=== PATIENT | female | born 1970 | race Caucasian/White ===

== ENCOUNTER 2019-04-23 15:10 | Inpatient (IN) ==
[2019-04-23] MEDS ORDERED: SODIUM CHLORIDE 0.9% 1000ML 2,000 ML IV ONE (15:31)
[2019-04-23] MEDS ORDERED: ALBUT/IPRATROP 3MG/0.5MG NEB 3 ML VIAL NEB STA (15:35)
--- NOTE | 2019-04-23 16:09 | XRay Report ---
XR chest 1V portable CLINICAL HISTORY: 49 years-old Female presenting with Chest Pain. TECHNIQUE: Portable upright AP view of the chest was obtained. COMPARISON: None. FINDINGS: Cardiomediastinal silhouette normal. Bibasilar hazy opacity on a background of coarsened lung marking s and reticular opacities. Trace right pleural effusion suspected. No pneumothorax. Osseous structure s normal. Upper abdomen normal. IMPRESSION: 1. Hazy bibasilar opacities concerning for edema or pneumonitis. This may be on a background of leather toggler kumar lung disease. Consider PA and lateral views or chest CT for further assessment. ACT 112: Negative or not required by law. Electronically signed by: Matthew Dimas M.D. 04/23/2019 4:08 PM
[2019-04-23 16:17] LABS: Albumin Level 3.1 gm/dl (3.4-5.0); BUN Creatinine Ratio 12.5 (10-20); Calcium 8.6 mg/dl (8.5-10.1); Creatinine Clr Calc Pharmacy 129.2 ml/min; Est GFR (African American) 127.1; Est GFR (Non-African American) 109.6; Hematocrit (blood only) 44.6 % (37-47); Hemoglobin 15.5 g/dL (12.0-16.0); Magnesium 2.1 mg/dl (1.8-2.4); Mean Corpuscular Hemoglobin 30.6 pg (25-34); Mean Corpuscular Hgb Conc 34.8 g/dL (32-36); Mean Platelet Volume 12.3 fL (7.4-10.4); Platelet Count 318 K/uL (130-400); Potassium 3.4 mmol/L (3.5-5.1); RDW Coefficient of Variation 12.1 % (11.5-14.5); RDW Standard Deviation 38.8 fL (36.4-46.3); Red Blood Count 5.07 M/uL (4.2-5.4)
[2019-04-23 16:20] LABS: Albumin Globulin Ratio 0.8 (0.9-2); Bilirubin,Total 0.5 mg/dl (0.2-1); Globulin 3.8 gm/dl (2.5-4.0); Phosphorus 2.3 mg/dl (2.5-4.9); Total Protein 6.9 gm/dl (6.4-8.2)
[2019-04-23 16:23] LABS: Basophils # (auto) 0.01 K/uL (0-0.2); Eosinophils # (auto) 0.29 K/uL (0-0.5); Eosinophils % (auto) 0.9 %; Immature Granulocytes # (auto) 0.44 K/uL (0.00-0.02); Immature Granulocytes % (auto) 1.3 %; Lymphocytes # (auto) 0.39 K/uL (1.2-3.4); Lymphocytes % (auto) 1.2 %; Monocytes # (auto) 0.92 K/uL (0.11-0.59); Monocytes % (auto) 2.8 %; Neutrophils # (auto) 30.55 K/uL (1.4-6.5); Neutrophils % (auto) 93.8 %
[2019-04-23] MEDS ORDERED: AZITHROMYCIN 500 MG in DEXTROSE 5% 250 ML IV STA (16:25)
[2019-04-23] MEDS ORDERED: cefTRIAXone SODIUM 2,000 MG/70 ML BAG IV STA (16:25)
[2019-04-23] MEDS ORDERED: POT PHOSPHATE MONOBASIC W/ SOD TAB PO STA (16:27)
[2019-04-23] MEDS ORDERED: POTASSIUM CHLORIDE 20 MEQ TABCR PO STA (16:27)
[2019-04-23 16:29] LABS: Influenza A virus by PCR Neg for Influ A (Neg); Influenza B virus by PCR Neg for Influ B (Neg)
[2019-04-23] MEDS ORDERED: OPTIRAY 320 125ml IV PRN (16:48)
--- NOTE | 2019-04-23 17:06 | CT Scan Report ---
CT angio chest PE protocol CT DOSE: 288.83 mGy.cm HISTORY: 49 years-old Female with PE. Acute cough and congestion with shortness of breath TECHNIQUE: Multiple CTA images of the chest were obtained after the intravenous administration of 116 ml Optiray 320. Coronal and sagittal MIPS were obtained from the axial data set and were submitted for review. All measurements were obtained according to NASCET criteria. A dose lowering technique w as utilized adhering to the principles of ALARA. COMPARISON: Chest radiograph of same day FINDINGS: CTA: Heart is normal in size. Trace pericardial effusion. No thoracic aortic aneurysm or dissection. There is patency of the imaged great vessels. The left vertebral artery which dates from the aortic arch. The pulmonary artery is opacified to level of the subsegmental branches and demonstrates no filling d efects to suggest pulmonary thromboembolic disease. CT CHEST: Heterogeneous thyroid. Pathologically enlarged paratracheal, subcarinal and hilar lymph nodes measure up to 11 mm in short axis. Small layering bilateral pleural effusions. No pneumothorax. With lobular multilobar intralobular septal thickening suggests interstitial pulmonary edema. Thickening of the b ronchovascular bundles. Mild layering bibasilar atelectasis. Peripheral distribution of upper lung zo ne predominant multifocal groundglass opacities. Medial basal right lower lobe consolidation measures up to 4.5 cm on image 105 series 4. Central airways appear to be patent. Mild nonspecific wall thickening of the distal esophagus. Soft tissues and imaged breast parenchyma a ppear unremarkable. The bones appear intact. There are no suspicious osseous lesions identified. Mild degenerative changes of the spine and shoulders. IMPRESSION: 1. No evidence of pulmonary thromboembolic disease. 2. Pulmonary edema with small layering pleural effusions. 3. Peripheral upper lobe predominant groundglass and consolidative opacities with right lower lobe co nsolidation is suggestive of a multifocal infectious or inflammatory pneumonitis. 4. Mediastinal and hilar adenopathy, likely reactive. ACT 112: Negative or not required by law. The above report was generated using voice recognition software. It may contain grammatical, syntax o r spelling errors. Electronically signed by: Seferino Randolph M.D. 04/23/2019 5:04 PM
--- NOTE | 2019-04-23 17:50 | History & Physical Report ---
Date of Service April 23, 2019 Assessment & Plan (1) Hypoxia: PNA noted on CTA Requiring O2 to maintain sats Started on ceftriaxone, azithro in the ED, will continue WBC elevated, likely related to infectious process but also did receive steroids this AM Will not continue steroids due to no wheezing, no hx of COPD Flu neg Persistent tachy, monitor on tele overnight (2) Hypokalemia: Replaced in the ED, monitor (3) Anxiety: continue home meds (4) Depression: continue home meds (5) Alcohol abuse: Currently in rehab at [facility] Most of medications on this list are related to rehab Celexa was pt's only prior home med Last alcohol 04/01 (6) DVT prophylaxis: SCDs, ambulation History of Present Illness Primary Care Provider: YUVAL GRUBER 49 y/o F c/o fever and SOB. Pt states she woke in the middle of the night on morning with SOB. She later developed fevers. This has gotten worse into today. She is currently undergoing alcohol rehab at [facility] and was seen in their medical office yesterday. She was started on augmentin last night and had another dose this AM. She was also given a dose of steroids this AM. Despite this, pt has continued to feel worse. She was noted to have O2 sats in the mid-80s on RA. She does not use O2 at baseline. She has been nauseated without emesis. She has not had much PO due to no appetite. She has never been sick like this before. Pt states she was doing quite well with her rehab. Her last alcohol was 04/01. She entered rehab on 04/02. Her only medication upon admission to [facility] was celexa. The other medications are prescribed by [facility] as part of their program. She states she has not needed any PRNs for the last few days. Pt denies chest pain, abd pain, c/d, LE pain or swelling. Allergies Allergy/AdvReac Type Severity Reaction Status Date / Time Sulfa (Sulfonamide Allergy Intermediate Rash Verified 04/23/19 16:02 Antibiotics) Home Medications Home Medications Medication Instructions Recorded Confirmed Type Mucinex 400 Mg 400 mg PO Q6H PRN 04/23/19 04/23/19 History acetaminophen 650 mg PO QID PRN 04/23/19 04/23/19 History amoxicillin-pot clavulanate 1 tab PO BID 04/23/19 04/23/19 History [Augmentin] apple cider vinegar 0 mg PO QAM 04/23/19 04/23/19 History bisacodyl 15 mg PO DAILY PRN 04/23/19 04/23/19 History calcium carbonate [Tums] See Rx Instructions .ROUTE 04/23/19 04/23/19 History .COMPLEX PRN MDD 15 TABLETS/24 HOURS citalopram [Celexa] 20 mg PO QAM 04/23/19 04/23/19 History clonidine HCl 0.1 mg PO TID PRN 04/23/19 04/23/19 History cyanocobalamin (vitamin B-12) 1,000 mcg IM DIRECTED 04/23/19 04/23/19 History dicyclomine 20 mg PO TID PRN 04/23/19 04/23/19 History diphenhydramine HCl [Benadryl] 25 - 50 mg PO Q6H PRN 04/23/19 04/23/19 History docusate sodium [Colace] 100 mg PO DAILY PRN 04/23/19 04/23/19 History doxepin 50 mg PO HS 04/23/19 04/23/19 History hydroxyzine pamoate [Vistaril] 50 mg PO TID PRN 04/23/19 04/23/19 History ibuprofen 600 mg PO QID PRN 04/23/19 04/23/19 History loratadine [Claritin] 10 mg PO DAILY PRN 04/23/19 04/23/19 History melatonin 5 mg PO HS PRN 04/23/19 04/23/19 History menthol [Biofreeze (menthol)] 1 applic TOPICAL DIRECTED PRN 04/23/19 04/23/19 History multivitamin 1 tab PO QAM 04/23/19 04/23/19 History naloxone 0.4 mg IM DIRECTED PRN 04/23/19 04/23/19 History naltrexone 50 mg PO DAILY 04/23/19 04/23/19 History naltrexone microspheres [Vivitrol] 380 mg IM DIRECTED 04/23/19 04/23/19 History ondansetron HCl [Zofran] 8 mg PO TID PRN 04/23/19 04/23/19 History polyethylene glycol 3350 [Miralax] 17 g PO Q4H PRN 04/23/19 04/23/19 History prednisone See Rx Instructions .ROUTE .COMPLEX 04/23/19 04/23/19 History promethazine 25 mg PO QID PRN 04/23/19 04/23/19 History ranitidine HCl [Zantac] 150 mg PO BID PRN 04/23/19 04/23/19 History Past Med/Surg History Medical History Encounter for alcohol rehabilitation Family History (Updated 04/23/19 @ 17:47 by Helen Baugh DO) Other Myocardial infarction No significant family history Stroke Social History (Updated 04/23/19 @ 17:48 by Helen Baugh DO) Feels Safe at Home: Yes Smoking Status: Former smoker Number of Years Since Quit: 19 ; Hx Alcohol Use: Yes Hx Substance Use: No Review of Systems Review of Systems: Pertinent positives and negatives reviewed in HPI--all others negative Physical Exam Constitutional: WD/WN, vitals as above Eyes: normal visual shelby by confrontation and + anicteric sclerae Neck: normal visual inspection and trachea midline Respiratory: normal respiratory effort; no respiratory distress Auscultation: + crackles; no wheezes Cardiovascular: Rate/Rhythm: regular rhythm and + tachycardic Gastrointestinal (Abdomen): Inspection/Auscultation: abdomen not distended Percussion/Palpation: abdomen soft; abdomen nontender Musculoskeletal: Head/Neck/Chest: normocephalic and head atraumatic negative for edema, peripheral pulses intact Skin: no rashes, warm and dry Neurologic: awake; not confused Speech / Cognition: normal speech Psychiatric: A+Ox3, euthymic affect Results & Data Vital Signs (Past 12 Hours) Vital Signs Temp Pulse Pulse Resp BP Pulse Ox 04/23/19 16:40 105 H 15 96 04/23/19 16:33 105 H 19 97/69 L 94 04/23/19 16:30 110 H 15 96 04/23/19 16:24 104 H 22 85 L 04/23/19 16:20 105 H 23 94 04/23/19 16:10 106 H 20 93 04/23/19 16:00 97 H 21 94 01/17/20 15:50 102 H 20 94 04/23/19 15:13 37.4 C 125 H 18 108/71 85 L Diagnostic Findings CXR: ?? bibasilar infiltrate CTA: PNA, neg for PE ECG Rhythm: sinus tachycardia Code Status & VTE Plan Code Status Full code VTE Prophylaxis Plan VTE Prophylaxis will be ordered: Yes PG Care Time/CCT Total # of Minutes Spent Total Time Spent with Patient: Total time spent is greater than 50% in coordination of care (as documented) at patient's floor/unit and/or counseling patient:
[2019-04-23] MEDS ORDERED: NON-FORMULARY MEDICATION (Menthol [Biofreeze (Menthol)] 1 APPLN) TOP PRN (18:50)
[2019-04-23] MEDS ORDERED: PROMETHAZINE HCL 25 MG TAB PO PRN (18:50)
[2019-04-23] MEDS ORDERED: DICYCLOMINE HCL 20 MG TAB PO PRN (18:50)
[2019-04-23] MEDS ORDERED: DOCUSATE SODIUM 100 MG CAP PO PRN (18:50)
[2019-04-23] MEDS ORDERED: ONDANSETRON 8 MG TABLET PO PRN (18:50)
[2019-04-23] MEDS ORDERED: ONDANSETRON INJ 2 MG/ML 2 ML VIAL IV PRN (18:50)
[2019-04-23] MEDS ORDERED: MAGNESIUM HYDROXIDE SUSP 30 ML UDC PO PRN (18:50)
[2019-04-23] MEDS ORDERED: POLYETHYLENE (MIRALAX) 17 GM PACK PO PRN (18:50)
[2019-04-23] MEDS ORDERED: CALCIUM CARBONATE 500 MG CHEWABLE TAB PO PRN (18:50)
[2019-04-23] MEDS ORDERED: cloNIDine HCL 0.1 MG TAB PO PRN (18:50)
[2019-04-23] MEDS ORDERED: LORATADINE 10 MG TAB PO PRN (18:50)
[2019-04-23] MEDS ORDERED: NON-FORMULARY MEDICATION (Melatonin 5 MG) PO PRN (18:50)
[2019-04-23] MEDS ORDERED: DOXEPIN HCL 50 MG CAPSULE PO PRN (18:50)
[2019-04-23] MEDS ORDERED: NALOXONE HCL 0.4 MG/1 ML VIAL/CARP IM PRN (18:50)
[2019-04-23] MEDS ORDERED: bisacodyL 5 MG TABEC PO PRN (19:06)
[2019-04-23] MEDS ORDERED: IBUPROFEN 600 MG TAB PO PRN (19:11)
[2019-04-23] MEDS: LACTOBACILLUS ACIDOPHILUS (FLORANEX) TAB PO SCH (20:45)
[2019-04-23] MEDS: FAMOTIDINE 20 MG TAB PO SCH (20:46)
[2019-04-23] MEDS: guaiFENesin 200 MG TAB PO PRN (22:29)
--- NOTE | 2019-04-23 23:19 | Emergency Department Note ---
Entered by Nara Parker acting as a scribe for History of Present Illness General Chief complaint: Fever Stated complaint: FEVER, CHEST CONGESTION Time Seen by Provider: 04/23/19 15:19 Source: patient History of Present Illness Onset (ago): day(s) 1 Location: head (fever ) Pain Consistency: + other (worsening) Maximum Pain Intensity: 8 Associated symptoms: + denies other symptoms (diarrhea and burning urination), + cough, + shortness of breath and + other (achy muscles, congestion); no chest pain and no nausea/vomiting Treatments prior to arrival: other (Tylenol and Ibuprofen) The patient is a 49 year old F who presents to the Emergency Room with com plaints of a worsening fever that started 1 day ago. The patient notes that her fever started yesterday, morning. The patient states that her fever has been around 101. She notes that she has also been experiencing coughing, congestion, shortness of breath and achy muscles around her chest and back. She states that she took Tylenol and Ibuprofen today. She denies experiencing chest pain, nausea, diarrhea, and burning urination. She also denies that she is normally on oxygen. She states that she is currently at [facility] for alcohol abuse. She adds that she has been receiving fluids there. She notes that she will get to go home next Friday. She denies being around anybody sick. She states that she currently takes Celexa, 20 mg. She adds that she is a current smoker. Home Medications Home Medications Medication Instructions Recorded Confirmed Type Mucinex 400 Mg 400 mg PO Q6H PRN 04/23/19 04/23/19 History acetaminophen 650 mg PO QID PRN 04/23/19 04/23/19 History amoxicillin-pot clavulanate 1 tab PO BID 04/23/19 04/23/19 History [Augmentin] apple cider vinegar 0 mg PO QAM 04/23/19 04/23/19 History bisacodyl 15 mg PO DAILY PRN 04/23/19 04/23/19 History calcium carbonate [Tums] See Rx Instructions .ROUTE 04/23/19 04/23/19 History .COMPLEX PRN MDD 15 TABLETS/24 HOURS citalopram [Celexa] 20 mg PO QAM 04/23/19 04/23/19 History clonidine HCl 0.1 mg PO TID PRN 04/23/19 04/23/19 History cyanocobalamin (vitamin B-12) 1,000 mcg IM DIRECTED 04/23/19 04/23/19 History dicyclomine 20 mg PO TID PRN 04/23/19 04/23/19 History diphenhydramine HCl [Benadryl] 25 - 50 mg PO Q6H PRN 04/23/19 04/23/19 History docusate sodium [Colace] 100 mg PO DAILY PRN 04/23/19 04/23/19 History doxepin 50 mg PO HS 04/23/19 04/23/19 History hydroxyzine pamoate [Vistaril] 50 mg PO TID PRN 04/23/19 04/23/19 History ibuprofen 600 mg PO QID PRN 04/23/19 04/23/19 History loratadine [Claritin] 10 mg PO DAILY PRN 04/23/19 04/23/19 History melatonin 5 mg PO HS PRN 04/23/19 04/23/19 History menthol [Biofreeze (menthol)] 1 applic TOPICAL DIRECTED PRN 04/23/19 04/23/19 History multivitamin 1 tab PO QAM 04/23/19 04/23/19 History naloxone 0.4 mg IM DIRECTED PRN 04/23/19 04/23/19 History naltrexone 50 mg PO DAILY 04/23/19 04/23/19 History naltrexone microspheres [Vivitrol] 380 mg IM DIRECTED 04/23/19 04/23/19 History ondansetron HCl [Zofran] 8 mg PO TID PRN 04/23/19 04/23/19 History polyethylene glycol 3350 [Miralax] 17 g PO Q4H PRN 04/23/19 04/23/19 History prednisone See Rx Instructions .ROUTE .COMPLEX 04/23/19 04/23/19 History promethazine 25 mg PO QID PRN 04/23/19 04/23/19 History ranitidine HCl [Zantac] 150 mg PO BID PRN 04/23/19 04/23/19 History Allergies Allergy/AdvReac Type Severity Reaction Status Date / Time Sulfa (Sulfonamide Allergy Intermediate Rash Verified 04/23/19 16:02 Antibiotics) Past Med/Surg History Medical History Encounter for alcohol rehabilitation Family History Other Myocardial infarction No significant family history Stroke Social History Preferred Language: Cuban Communication Ability: Effective Clothing Designer Required: No Beliefs That Will Affect Care: None Current Living Situation: Other Current Living Situation Comment: at [facility] rehab Other Information That Helps Us Care for You: No Feels Safe at Home: Yes Safety Concerns: Feels Safe At This Time Smoking Status: Current every day smoker Tobacco Type: cigarettes ; Cigarettes Per Day: 1-2, restarted, quit 19 years prior ; Do You Dip or Chew Tobacco: No ; Number of Years Since Quit: 19 ; Second Hand Exposure: No ; Tobacco Cessation Education Requested by Patient: No Hx Alcohol Use: No Hx Substance Use: No Review of Systems See HPI for pertinent positives & negatives. and A total of 10 systems reviewed and were otherwise negative Physical Exam Vital Signs Vital Signs - 24 hr 04/23/19 15:13 04/23/19 15:50 04/23/19 16:00 Temperature 37.4 C Temperature Source Oral Pulse Rate 125 H 102 H 97 H Pulse Rate [Apical] Pulse Rate from SpO2 Sensor 102 H 98 H Respiratory Rate 18 20 21 Respiratory Effort / Characteristics Blood Pressure 108/71 Blood Pressure Mean 83 Pulse Oximetry 85 L 94 94 Oxygen Delivery Method Room Air Room Air Oxygen Flow Rate Sepsis Recent Fever Within 48 Hours Yes Sepsis New/Unexplained Change in Mental Status No Sepsis Action Taken by Nursing No Action Required Oxygen Flow Rate - Titration Pulse Oximetry Post Tiitration 04/23/19 16:10 04/23/19 16:20 04/23/19 16:24 Temperature Temperature Source Pulse Rate 106 H 105 H Pulse Rate [Apical] 104 H Pulse Rate from SpO2 Sensor 106 H 105 H Respiratory Rate 20 23 22 Respiratory Effort / Characteristics Non-Labored Spontaneous Blood Pressure Blood Pressure Mean Pulse Oximetry 93 94 85 L Oxygen Delivery Method Nasal Cannula Oxygen Flow Rate 0 Sepsis Recent Fever Within 48 Hours Sepsis New/Unexplained Change in Mental Status Sepsis Action Taken by Nursing Oxygen Flow Rate - Titration 2 Pulse Oximetry Post Tiitration 93 04/23/19 16:30 04/23/19 16:33 04/23/19 16:40 Temperature Temperature Source Pulse Rate 110 H 105 H 105 H Pulse Rate [Apical] Pulse Rate from SpO2 Sensor 113 H 105 H 107 H Respiratory Rate 15 19 15 Respiratory Effort / Characteristics Blood Pressure 97/69 L Blood Pressure Mean 73 Pulse Oximetry 96 94 96 Oxygen Delivery Method Oxygen Flow Rate Sepsis Recent Fever Within 48 Hours Sepsis New/Unexplained Change in Mental Status Sepsis Action Taken by Nursing Oxygen Flow Rate - Titration Pulse Oximetry Post Tiitration GENERAL: Awake, alert, fatigued-appearing HENT: Normocephalic, atraumatic. Oropharynx with dry mucous membranes and otherwise unremarkable. EYES: Normal conjunctiva. Sclera non-icteric. NECK: Supple. No nuchal rigidity. FROM. No JVD. RESPIRATORY: Scant intermittent wheezes otherwise clear. CARDIAC: Tachycardic rate, normal rhythm. Extremities warm and well perfused. Pulses equal. ABDOMEN: Soft, non-distended. No tenderness to palpation. No rebound or guarding. No masses. RECTAL: Deferred. MUSCULOSKELETAL: Chest examination reveals no tenderness. The back is symmetrical on inspection without obvious abnormality. There is no CVA tenderness to palpation. No joint edema. LOWER EXTREMITIES: Calves are equal size bilaterally and non-tender. No edema. No discoloration. NEURO: Normal sensorium. No sensory or motor deficits noted. SKIN: No rash or jaundice noted. Course Course 1529: The patient was evaluated in room C8. A complete history and physical exam was performed. 1713: I reviewed the patient's case with Dr. Helen Baugh, [facility] Hospitalist. She will evaluate the patient for further management. Administered Medications Famotidine (Pepcid) 20 mg PO BID [facility] Stop: 05/23/19 20:59 Last Admin: 04/23/19 20:46 Dose: 20 mg Documented by: [id number] Guaifenesin (Organidin Nr) 400 mg PO Q6H PRN PRN Reason: CONGESTION Stop: 05/23/19 19:08 Last Admin: 04/23/19 22:29 Dose: 400 mg Documented by: [id number] Ibuprofen (Motrin) 600 mg PO QID PRN PRN Reason: PAIN OR FEVER Stop: 05/23/19 19:10 Last Admin: 04/23/19 22:31 Dose: 600 mg Documented by: [id number] Ioversol (Optiray 320 125ml) 116 ml IV ONCE PRN PRN Reason: Interaction Checking Stop: 04/27/19 16:47 Last Admin: 04/23/19 16:48 Dose: 116 ml Documented by: [id number] Lactobacillus Acidophilus (Floranex) 4 tab PO QIDM OZZY Stop: 05/23/19 20:59 Last Admin: 04/23/19 20:45 Dose: 4 tab Documented by: [id number] Discontinued Medications Albuterol (Duoneb) 3 ml NEB NOW STA Stop: 04/23/19 15:36 Last Admin: 04/23/19 16:21 Dose: 3 ml Documented by: [id number] Sodium Chloride (Nss 1000ml) 2,000 mls @ 999 mls/hr IV .Q2H1M ONE Stop: 04/23/19 17:31 Last Infusion: 04/23/19 18:27 Dose: 0 mls/hr Documented by: [id number] Admin: 04/23/19 16:25 Dose: 999 mls/hr Documented by: [id number] Ceftriaxone Sodium (Rocephin) 2,000 mg in 70 mls @ 140 mls/hr IV NOW STA Stop: 04/23/19 16:54 Last Infusion: 04/23/19 17:13 Dose: 0 mls/hr Documented by: [id number] Admin: 04/23/19 16:42 Dose: 140 mls/hr Documented by: [id number] Azithromycin 500 mg/ Dextrose 255 mls @ 127.5 mls/hr IV NOW STA Stop: 04/23/19 18:24 Last Infusion: 04/23/19 19:55 Dose: 0 mls/hr Documented by: [id number] Admin: 04/23/19 17:03 Dose: 127.5 mls/hr Documented by: [id number] Potassium Chloride (Klor-Con M20) 40 meq PO NOW STA Stop: 04/23/19 16:28 Last Admin: 04/23/19 16:42 Dose: 40 meq Documented by: [id number] Potassium Phosphate (Phospha 250 Neutral 155-852-130 Mg) 2 tab PO NOW STA Stop: 04/23/19 16:28 Last Admin: 04/23/19 17:02 Dose: 2 tab Documented by: [id number] Medical Decision Making Differential Diagnosis Differential diagnoses includes but is not limited to pneumonia, bronchitis, COPD/Asthma exacerbation, pneumothorax, pulmonary embolism, congestive heart failure, acute coronary syndrome Medical Records Attestation: I reviewed the patient's medical records. Home Medications Current Medication List: was personally reviewed by me Laboratory Data Attestation: I reviewed the patient's lab results. Result diagrams: 04/23/19 15:48 04/23/19 15:48 Lab Results 04/23/19 04/23/19 04/23/19 Range/Units 15:45 15:48 15:48 WBC 32.60 H* (4.8-10.8) K/uL RBC 5.07 (4.2-5.4) M/uL Hgb 15.5 (12.0-16.0) g/dL Hct 44.6 (37-47) % MCV 88.0 (80-100) fL MCH 30.6 (25-34) pg MCHC 34.8 (32-36) g/dL RDW Std Deviation 38.8 (36.4-46.3) fL RDW Coeff of Krys 12.1 (11.5-14.5) % Plt Count 318 (130-400) K/uL MPV 12.3 H (7.4-10.4) fL Immature Gran % (Auto) 1.3 % Neut % (Auto) 93.8 % Lymph % (Auto) 1.2 % [place] % (Auto) 2.8 % Eos % (Auto) 0.9 % Baso % (Auto) 0.0 % Immature Gran # (Auto) 0.44 H (0.00-0.02) K/uL Neut # (Auto) 30.55 H (1.4-6.5) K/uL Lymph # (Auto) 0.39 L (1.2-3.4) K/uL [place] # (Auto) 0.92 H (0.11-0.59) K/uL Eos # (Auto) 0.29 (0-0.5) K/uL Baso # (Auto) 0.01 (0-0.2) K/uL Sodium 136 (136-145) mmol/L Potassium 3.4 L (3.5-5.1) mmol/L Chloride 105 (98-107) mmol/L Carbon Dioxide 22 (21-32) mmol/L Anion Gap 9.0 (3-11) BUN 7 (7-18) mg/dl Creatinine 0.57 L (0.6-1.2) mg/dl Est Cr Clr Drug Dosing 129.2 ml/min Est GFR ( Amer) 127.1 Est GFR (Non-Af Amer) 109.6 BUN/Creatinine Ratio 12.5 (10-20) Glucose 136 H (70-99) mg/dl Lactate (0.4-2.0) mmol/L Calcium 8.6 (8.5-10.1) mg/dl Phosphorus 2.3 L (2.5-4.9) mg/dl Magnesium 2.1 (1.8-2.4) mg/dl Total Bilirubin 0.5 (0.2-1) mg/dl AST 9 L (15-37) U/L ALT 15 (12-78) U/L Alkaline Phosphatase 51 (45-117) U/L NT-Pro-B Natriuret Pep 322 (0-450) pg/ml Total Protein 6.9 (6.4-8.2) gm/dl Albumin 3.1 L (3.4-5.0) gm/dl Globulin 3.8 (2.5-4.0) gm/dl Albumin/Globulin Ratio 0.8 L (0.9-2) Lipase 24 L (73-393) U/L Influenza Type A (PCR) Neg for Influ A (Neg) Influenza Type B (PCR) Neg for Influ B (Neg) 04/23/19 Range/Units 16:31 WBC (4.8-10.8) K/uL RBC (4.2-5.4) M/uL Hgb (12.0-16.0) g/dL Hct (37-47) % MCV (80-100) fL MCH (25-34) pg MCHC (32-36) g/dL RDW Std Deviation (36.4-46.3) fL RDW Coeff of Krys (11.5-14.5) % Plt Count (130-400) K/uL MPV (7.4-10.4) fL Immature Gran % (Auto) % Neut % (Auto) % Lymph % (Auto) % [place] % (Auto) % Eos % (Auto) % Baso % (Auto) % Immature Gran # (Auto) (0.00-0.02) K/uL Neut # (Auto) (1.4-6.5) K/uL Lymph # (Auto) (1.2-3.4) K/uL [place] # (Auto) (0.11-0.59) K/uL Eos # (Auto) (0-0.5) K/uL Baso # (Auto) (0-0.2) K/uL Sodium (136-145) mmol/L Potassium (3.5-5.1) mmol/L Chloride (98-107) mmol/L Carbon Dioxide (21-32) mmol/L Anion Gap (3-11) BUN (7-18) mg/dl Creatinine (0.6-1.2) mg/dl Est Cr Clr Drug Dosing ml/min Est GFR ( Amer) Est GFR (Non-Af Amer) BUN/Creatinine Ratio (10-20) Glucose (70-99) mg/dl Lactate 0.8 (0.4-2.0) mmol/L Calcium (8.5-10.1) mg/dl Phosphorus (2.5-4.9) mg/dl Magnesium (1.8-2.4) mg/dl Total Bilirubin (0.2-1) mg/dl AST (15-37) U/L ALT (12-78) U/L Alkaline Phosphatase (45-117) U/L NT-Pro-B Natriuret Pep (0-450) pg/ml Total Protein (6.4-8.2) gm/dl Albumin (3.4-5.0) gm/dl Globulin (2.5-4.0) gm/dl Albumin/Globulin Ratio (0.9-2) Lipase (73-393) U/L Influenza Type A (PCR) (Neg) Influenza Type B (PCR) (Neg) Imaging Data Radiologist's Impression: Radiology results as stated below per my review and t he radiologist's interpretation: XR chest 1V portable CLINICAL HISTORY: 49 years-old Female presenting with Chest Pain. TECHNIQUE: Portable upright AP view of the chest was obtained. COMPARISON: None. FINDINGS: Cardiomediastinal silhouette normal. Bibasilar hazy opacity on a background of coarsened lung markings and reticular opacities. Trace right pleural effusion suspected. No pneumothorax. Osseous structures normal. Upper abdomen normal. IMPRESSION: 1. Hazy bibasilar opacities concerning for edema or pneumonitis. This may be on a background of chronic lung disease. Consider PA and lateral views or chest CT for further assessment. ACT 112: Negative or not required by law. Electronically signed by: Matthew Dimas M.D. 04/23/2019 4:[address] angio chest PE protocol CT DOSE: 288.83 mGy.cm HISTORY: 49 years-old Female with PE. Acute cough and congestion with shortness of breath TECHNIQUE: Multiple CTA images of the chest were obtained after the intravenous administration of 116 ml Optiray 320. Coronal and sagittal MIPS were obtained from the axial data set and were submitted for review. All measurements were obtained according to NASCET criteria. A dose lowering technique was utilized adhering to the principles of ALARA. COMPARISON: Chest radiograph of same day FINDINGS: CTA: Heart is normal in size. Trace pericardial effusion. No thoracic aortic aneurysm or dissection. There is patency of the imaged great vessels. The left vertebral artery which dates from the aortic arch. The pulmonary artery is opacified to level of the subsegmental branches and demonstrates no filling defects to suggest pulmonary thromboembolic disease. CT CHEST: Heterogeneous thyroid. Pathologically enlarged paratracheal, subcarinal and hilar lymph nodes measure up to 11 mm in short axis. Small layering bilateral pleural effusions. No pneumothorax. With lobular multilobar intralobular septal thickening suggests interstitial pulmonary edema. Thickening of the bronchovascular bundles. Mild layering bibasilar atelectasis. Peripheral distribution of upper lung zone predominant multifocal groundglass opacities. Medial basal right lower lobe consolidation measures up to 4.5 cm on image 105 s eries 4. Central airways appear to be patent. Mild nonspecific wall thickening of the distal esophagus. Soft tissues and imaged breast parenchyma appear unremarkable. The bones appear intact. There are no suspicious osseous lesions identified. Mild degenerative changes of the spine and shoulders. IMPRESSION: 1. No evidence of pulmonary thromboembolic disease. 2. Pulmonary edema with small layering pleural effusions. 3. Peripheral upper lobe predominant groundglass and consolidative opacities with right lower lobe consolidation is suggestive of a multifocal infectious or inflammatory pneumonitis. 4. Mediastinal and hilar adenopathy, likely reactive. ACT 112: Negative or not required by law. The above report was generated using voice recognition software. It may contain grammatical, syntax or spelling errors. Electronically signed by: Seferino Randolph M.D. 04/23/2019 5:04 PM ECG Data Attestation: I personally reviewed and interpreted this ECG as follows: Indication: + SOB/dyspnea Rate (beats per minute): 102 Rhythm: + sinus tachycardia ECG [place]: + Normal ECG ST segments: no ST depression and no ST elevation ECG Findings: + PACs and + Other (aberrant conduction, QTc 443) Blood Pressure Blood Pressure Findings: Low blood pressure Blood Pressure Disposition: further management by hospitalist MDM Narrative The patient is a pleasant 49-year-old woman who presents emergency department from [facility] alcohol rehab with fevers, chills with cough and congestion and hypoxia per HPI. Patient reports she has been in [facility] for several weeks but only began to feel symptoms over the past 24-48 hours. She reports there was another participant at [facility] says that she was aware of having an illness but she did not feel like she was ever exposed to this person. She denies any history of smoking but reports recently started smoking while undergoing her alcohol rehab. On arrival the patient is fatigued and uncomfortable no acute distress, afebrile with heart rate in the 120s and hypoxia to 85% on room air. EKG without overt acute ischemia. Chest x-ray with evidence of pneumonia. WBC elevated at 30 2.6K, H/H and platelets within normal limits. Chemistry without acidosis. Potassium 3.4 and phosphorus 2.3 with repletion provided. Otherwise electrolytes and LFTs unremarkable. Lactate within normal limits. BNP within normal limits. Flu negative. CTA negative for PE and further characterizes the patient's pneumonia with right upper lobe consolidation. Comment of mild pulmonary edema likely related to infectious inflammatory process. As BNP is within normal limits. Antibiotic therapy initiated with ceftriaxone and azithromycin. Given the patient's hypoxia and leukocytosis reasonable to admit the patient for further management. Patient was agreeable with this. Case was discussed with Dr. Helen Baugh, [facility] hospitalist, who evaluate the patient for admission. Impression & Plan PNA (pneumonia), Hypoxia, Pleural effusion, Leukocytosis, Hypokalemia, Hypophosphatemia Discharge Plan Visit Data *Final* Discharge Date/Time: 04/23/19 18:27 Chief Complaint: Fever Stated Complaint: FEVER, CHEST CONGESTION ED Provider: Martínez Churchill Discharge Problem: PNA (pneumonia), Hypoxia, Pleural effusion, Leukocytosis, Hypokalemia, Hypophosphatemia Patient Disposition: Admitted As Inpatient Discharge Instructions Interventions: ED Discharge Assessment Last Done: 04/23/19 18:27 Discharge Problem: PNA (pneumonia) Qualifiers: Pneumonia type: due to unspecified organism Laterality: bilateral Lung location: lower lobe of lung Qualified Code(s): J18.9 - Pneumonia, unspecified organism Leukocytosis Qualifiers: Leukocytosis type: unspecified Qualified Code(s): D72.829 - Elevated white blood cell count, unspecified The scribe's documentation has been prepared under my direction and personally reviewed by me in its entirety. I confirm that the note above accurately reflects all work, treatment, procedures, and medical decision making performed by me.
[2019-04-24] MEDS: ACETAMINOPHEN 325 MG TAB PO PRN ×3 (04:09→23:07)
[2019-04-24 07:23] LABS: Hematocrit (blood only) 40.1 % (37-47); Hemoglobin 13.7 g/dL (12.0-16.0); Mean Corpuscular Hemoglobin 30.2 pg (25-34); Mean Corpuscular Hgb Conc 34.2 g/dL (32-36); Mean Corpuscular Volume 88.3 fL (80-100); Mean Platelet Volume 12.1 fL (7.4-10.4); Platelet Count 294 K/uL (130-400); RDW Coefficient of Variation 12.2 % (11.5-14.5); RDW Standard Deviation 39.3 fL (36.4-46.3); Red Blood Count 4.54 M/uL (4.2-5.4); White Blood Count 24.86 K/uL (4.8-10.8)
[2019-04-24] MEDS: MULTIVITAMIN TAB PO SCH (07:50)
[2019-04-24 07:51] LABS: Basophils # (auto) 0.01 K/uL (0-0.2); Immature Granulocytes # (auto) 0.24 K/uL (0.00-0.02); Lymphocytes # (auto) 0.59 K/uL (1.2-3.4); Lymphocytes % (auto) 2.4 %; Monocytes # (auto) 0.93 K/uL (0.11-0.59); Monocytes % (auto) 3.7 %; Neutrophils # (auto) 22.59 K/uL (1.4-6.5); Neutrophils % (auto) 90.9 %; Toxic Vacuolation 1+
[2019-04-24] MEDS: NALTREXONE HCL 50 MG TAB PO SCH (07:51)
[2019-04-24] MEDS: LACTOBACILLUS ACIDOPHILUS (FLORANEX) TAB PO SCH ×4 (07:51→21:28)
[2019-04-24] MEDS: FAMOTIDINE 20 MG TAB PO SCH ×2 (07:51→21:30)
[2019-04-24] MEDS: CITALOPRAM 20 MG TAB PO SCH (07:51)
[2019-04-24 07:52] LABS: Creatinine Clr Calc Pharmacy 157.5 ml/min; Est GFR (African American) 135.4; Est GFR (Non-African American) 116.8; Potassium 3.2 mmol/L (3.5-5.1)
[2019-04-24] MEDS: guaiFENesin 200 MG TAB PO PRN ×2 (07:52→21:28)
[2019-04-24 07:53] LABS: Phosphorus 2.2 mg/dl (2.5-4.9)
[2019-04-24] MEDS: cefTRIAXone SODIUM 1,000 MG/50 ML BAG IV SCH (08:25)
[2019-04-24] MEDS: AZITHROMYCIN 250 MG in DEXTROSE 5% 250 ML IV SCH (08:33)
[2019-04-24] MEDS: POTASSIUM CHLORIDE 20 MEQ TABCR PO SCH ×3 (09:44→21:27)
[2019-04-24] MEDS: POT PHOSPHATE MONOBASIC W/ SOD TAB PO SCH ×4 (09:44→21:31)
--- NOTE | 2019-04-24 10:59 | Electrocardiogram Report ---
Test Reason : Blood Pressure : / mmHG Vent. Rate : 102 BPM Atrial Rate : 102 BPM P-R Int : 156 ms QRS Dur : 072 ms QT Int : 340 ms P-R-T Axes : 071 017 050 degrees QTc Int : 443 ms Poor data quality, interpretation may be adversely affected Sinus tachycardia with Premature ventricular complexes Left atrial enlargement Possible Anteroseptal infarct , age undetermined vs lead placement Abnormal ECG No previous ECGs available Confirmed by Negrito Ford ([id number]) on 04/24/2019 10:58:55 AM Referred By: REFERRED SELF Confirmed By:Negrito Ford
[2019-04-24] MEDS ORDERED: BENZONATATE 100 MG CAPSULE PO PRN (12:03)
--- NOTE | 2019-04-24 12:04 | Hospitalist Progress Note ---
Date of Service April 24, 2019 Assessment & Plan (1) Acute respiratory failure with hypoxia: CT chest with b/l pneumonia. This could be viral vs bacterial. Technically she was in a health-care type of setting but it was not a hospital per se. None the less if she fails to improve would need to consider adding gram negative coverage. Flu PCR was neg. Blood cx's thus far neg. Remains on rocephin/zithromax - day #2 of each. WBC count did improve overnight. Other possibility would be that of a smoking-related bronchiolitis given that she just started smoking again over the last 2 weeks but this is less likely. (2) PNA (pneumonia): Cont current IV abx. Add solumedrol 30mg IV q12h due to bronchitic component. Add combivent QID. Add tessalon prn. Add incentive sheila. Add flutter valve. Consider repeat cxr in am. Follow cultures. Could consider mycoplasma/legionella testing. (3) Hypokalemia: replace PO repeat BMP am (4) Hypophosphatemia: replace PO repeat level 2-3 days (5) Anxiety: cont outpatient meds (6) Depression: cont outpatient meds (7) Alcohol abuse: just finished a 2-3 week stay at [facility] drug/alcohol rehab does not need to return there post-d/c from [facility] add thiamine once daily no evidence of any etoh withdrawal (last drink was ) (8) Tobacco use: declines nicoderm patch (9) DVT prophylaxis: add lovenox once daily updated at bedside Subjective patient reports ongoing dry cough. mild WALLS but none at rest. no orthopnea. had been at [facility] alcohol/drug rehab since just after . she states that she has been discharged from the program and does not need to return there. previously she smoked; quit 19 years ago; then restarted smoking while at [facility] in the last 2 weeks. had fever at [facility] a few days ago. has poor appetite, nausea - but no abdominal pain. Review of Systems Constitutional: + fever, + fatigue and + anorexia; no chills Respiratory: + cough; no hemoptysis, no sputum production and no wheezing Cardiovascular: no chest pain Gastrointestinal: no abdominal pain Physical Exam Constitutional: + ill appearing; no acute distress and no altered mental status ENMT: external ear and nose normal, oropharynx normal Respiratory: Auscultation: + crackles (extensive - right base, right anterior chest, and left base.) and + wheezes (focal - right lung mainly.) Cardiovascular: Rate/Rhythm: regular rate and regular rhythm Heart Sounds: normal S1 and normal S2; no murmur Vessels: posterior tibial pulses present and dorsalis pedis pulses present; no JVD Extremities: no edema Gastrointestinal (Abdomen): normal bowel sounds, soft, nontender, no hepatosplenomegaly Skin: no rashes, warm and dry tattoo on back Neurologic: Motor/Sensory: no tremor Psychiatric: A+Ox3, euthymic affect Results & Data Vital Signs (Past 12 Hours) Vital Signs Temp Pulse Pulse Resp BP BP Pulse Ox 04/24/19 11:00 37.0 C 106 H 18 107/68 91 04/24/19 08:00 109 H 04/24/19 07:00 37.0 C 100 H 18 108/70 91 04/24/19 04:50 36.9 C 108 H 19 121/66 90 04/24/19 00:07 37.2 C 98 H 18 106/62 90 Laboratory Results Laboratory Results - last 24 hr 04/23/19 04/23/19 04/23/19 15:45 15:48 15:48 WBC 32.60 H* RBC 5.07 Hgb 15.5 Hct 44.6 MCV 88.0 MCH 30.6 MCHC 34.8 RDW Std Deviation 38.8 RDW Coeff of Krys 12.1 Plt Count 318 MPV 12.3 H Immature Gran % (Auto) 1.3 Neut % (Auto) 93.8 Lymph % (Auto) 1.2 Moody % (Auto) 2.8 Eos % (Auto) 0.9 Baso % (Auto) 0.0 Immature Gran # (Auto) 0.44 H Neut # (Auto) 30.55 H Lymph # (Auto) 0.39 L Moody # (Auto) 0.92 H Eos # (Auto) 0.29 Baso # (Auto) 0.01 Toxic Vacuolation Sodium 136 Potassium 3.4 L Chloride 105 Carbon Dioxide 22 Anion Gap 9.0 BUN 7 Creatinine 0.57 L Est Cr Clr Drug Dosing 129.2 Est GFR ( Amer) 127.1 Est GFR (Non-Af Amer) 109.6 BUN/Creatinine Ratio 12.5 Glucose 136 H Lactate Calcium 8.6 Phosphorus 2.3 L Magnesium 2.1 Total Bilirubin 0.5 AST 9 L ALT 15 Alkaline Phosphatase 51 NT-Pro-B Natriuret Pep 322 Total Protein 6.9 Albumin 3.1 L Globulin 3.8 Albumin/Globulin Ratio 0.8 L Lipase 24 L Influenza Type A (PCR) Neg for Influ A Influenza Type B (PCR) Neg for Influ B 04/23/19 04/24/19 04/24/19 16:31 07:05 07:05 WBC 24.86 H RBC 4.54 Hgb 13.7 Hct 40.1 MCV 88.3 MCH 30.2 MCHC 34.2 RDW Std Deviation 39.3 RDW Coeff of Krys 12.2 Plt Count 294 MPV 12.1 H Immature Gran % (Auto) 1.0 Neut % (Auto) 90.9 Lymph % (Auto) 2.4 Moody % (Auto) 3.7 Eos % (Auto) 2.0 Baso % (Auto) 0.0 Immature Gran # (Auto) 0.24 H Neut # (Auto) 22.59 H Lymph # (Auto) 0.59 L Moody # (Auto) 0.93 H Eos # (Auto) 0.50 Baso # (Auto) 0.01 Toxic Vacuolation 1+ Sodium 138 Potassium 3.2 L Chloride 108 H Carbon Dioxide 26 Anion Gap 4.0 BUN 5 L Creatinine 0.47 L Est Cr Clr Drug Dosing 157.5 Est GFR ( Amer) 135.4 Est GFR (Non-Af Amer) 116.8 BUN/Creatinine Ratio 11.0 Glucose 116 H Lactate 0.8 Calcium 8.0 L Phosphorus 2.2 L Magnesium Total Bilirubin AST ALT Alkaline Phosphatase NT-Pro-B Natriuret Pep Total Protein Albumin Globulin Albumin/Globulin Ratio Lipase Influenza Type A (PCR) Influenza Type B (PCR) PG Care Time/CCT Total # of Minutes Spent Total Time Spent with Patient: Total time spent is greater than 50% in coordination of care (as documented) at patient's floor/unit and/or counseling patient: (1) PNA (pneumonia) Laterality: bilateral Lung location: lower lobe of lung Pneumonia type: due to unspecified organism Qualified Code(s): J18.9 - Pneumonia, unspecified organism
[2019-04-24] MEDS: methylPREDNISolone 30 MG in SYRINGE 0 ML IV SCH ×2 (12:51→23:57)
[2019-04-24] MEDS: THIAMINE HCL 200 MG in SODIUM CHLORIDE 0.9% 50 ML IV SCH (12:51)
[2019-04-24] MEDS: IPRATROPIUM BROMIDE/ALBUTEROL respimat INH INH SCH ×3 (13:49→21:25)
[2019-04-24 16:11] LABS: Appearance Urine Clear (Clear); Bilirubin Urine Negative (Negative); Blood Urine Negative (Negative); Color Urine Yellow; Glucose Urine UA Negative (Negative); Leukocyte Esterase Urine Negative (Negative); Nitrite Urine Negative (Negative); Protein Urine Negative (Negative); Specific Gravity Urine 1.014 (1.000-1.030); Urobilinogen Urine Negative (Negative); pH Urine 6.5 (4.5-7.5)
[2019-04-24 16:16] LABS: Ketones Urine 3+ (Negative)
[2019-04-24] MEDS: ENOXAPARIN INJ 40 MG/0.4 ML SYR SQ SCH (17:09)
[2019-04-25 06:53] LABS: Hematocrit (blood only) 41.5 % (37-47); Mean Corpuscular Hemoglobin 30.3 pg (25-34); Mean Corpuscular Hgb Conc 33.7 g/dL (32-36); Mean Corpuscular Volume 89.8 fL (80-100); Platelet Count 366 K/uL (130-400); RDW Coefficient of Variation 12.5 % (11.5-14.5); RDW Standard Deviation 40.9 fL (36.4-46.3); Red Blood Count 4.62 M/uL (4.2-5.4)
[2019-04-25 07:29] LABS: BUN Creatinine Ratio 16.3 (10-20); Calcium 8.9 mg/dl (8.5-10.1); Creatinine Clr Calc Pharmacy 187.3 ml/min; Est GFR (African American) 140.5; Est GFR (Non-African American) 121.2; Potassium 4.5 mmol/L (3.5-5.1)
[2019-04-25] MEDS: MULTIVITAMIN TAB PO SCH (07:47)
[2019-04-25] MEDS: LACTOBACILLUS ACIDOPHILUS (FLORANEX) TAB PO SCH ×4 (07:47→20:32)
[2019-04-25] MEDS: NALTREXONE HCL 50 MG TAB PO SCH (07:48)
[2019-04-25] MEDS: POTASSIUM CHLORIDE 20 MEQ TABCR PO SCH ×2 (07:48→13:10)
[2019-04-25] MEDS: CITALOPRAM 20 MG TAB PO SCH (07:48)
[2019-04-25] MEDS: IPRATROPIUM BROMIDE/ALBUTEROL respimat INH INH SCH ×4 (07:48→20:29)
[2019-04-25] MEDS: POT PHOSPHATE MONOBASIC W/ SOD TAB PO SCH ×3 (07:48→17:19)
[2019-04-25] MEDS: FAMOTIDINE 20 MG TAB PO SCH ×2 (07:49→20:32)
[2019-04-25] MEDS: cefTRIAXone SODIUM 1,000 MG/50 ML BAG IV SCH (07:59)
[2019-04-25] MEDS: THIAMINE HCL 200 MG in SODIUM CHLORIDE 0.9% 50 ML IV SCH (08:00)
[2019-04-25] MEDS: AZITHROMYCIN 250 MG in DEXTROSE 5% 250 ML IV SCH (08:34)
[2019-04-25] MEDS: methylPREDNISolone 30 MG in SYRINGE 0 ML IV SCH (11:58)
--- NOTE | 2019-04-25 18:03 | Hospitalist Progress Note ---
Date of Service April 25, 2019 Assessment & Plan (1) Acute respiratory failure with hypoxia: IMPROVED/RESOLVING. During bedside rounds I stopped her NC O2 -- sats were 94% in RA. CT chest with b/l pneumonia. Technically she was in a health-care type of setting ([facility] drug/alcohol reha b) but it was not a hospital thus not covering for gram negatives. MRSA swab neg. Flu PCR was neg. Blood cx's cont to be neg. Remains on rocephin/zithromax - day #3 of each. Cont IV rocephin today; transition to PO cefdinir (or similar) tomorrow. Stop IV zithromax; change to PO zithromax today. WBC count continues to improve. Other possibility would be that of a smoking-related bronchiolitis given that she just started smoking again over the last 2 weeks but this is much less likely. (2) PNA (pneumonia): Antibiotics as above. Stop IV solumedrol; change to PO prednisone in am and taper. Cont combivent QID. Cont tessalon prn. Cont incentive sheila. Cont flutter valve. Defer on repeat cxr since she is improving. Ambulate today. (3) Hypokalemia: resolved; stop supplementation repeat BMP am (4) Hypophosphatemia: replaced over last 48 hours will stop supplementation today and repeat level in am (5) Anxiety: cont outpatient meds (6) Depression: cont outpatient meds (7) Alcohol abuse: just finished a 2-3 week stay at [facility] drug/alcohol rehab does not need to return there post-d/c from [facility] cont thiamine 200mg once daily no evidence of any etoh withdrawal (last drink was [place]) remains on naloxone 50mg daily (8) Tobacco use: declines nicoderm patch (9) DVT prophylaxis: lovenox once daily updated at bedside 04/24/19 anticipate d/c home on 04/26/19 she is from [facility] and plans to return there with her Subjective patient feels much better today. cough is starting to produce clear sputum. nausea resolved. appetite improved. no WALLS. no orthopnea/PND. no fevers or chills today. better energy. tele overnight - normal. Review of Systems Constitutional: no fever, no chills and no body aches Respiratory: no dyspnea on exertion Cardiovascular: no chest pain Gastrointestinal: no abdominal pain Physical Exam Constitutional: well developed and well nourished; no acute distress and no altered mental status looks much better today ENMT: external ear and nose normal, oropharynx normal Respiratory: no respiratory distress Auscultation: + crackles (right base, right anterior chest, and left base - all improved today ) and + wheezes (resolved today ) Cardiovascular: Rate/Rhythm: regular rate and regular rhythm Heart Sounds: normal S1 and normal S2; no murmur Vessels: posterior tibial pulses present and dorsalis pedis pulses present; no JVD Extremities: no edema Gastrointestinal (Abdomen): normal bowel sounds, soft, nontender, no hepatosplenomegaly Neurologic: Motor/Sensory: no tremor Psychiatric: A+Ox3, euthymic affect Results & Data Vital Signs (Past 12 Hours) Vital Signs Temp Pulse Pulse Resp BP BP Pulse Ox 04/25/19 16:40 79 04/25/19 16:26 91 04/25/19 15:22 36.8 C 74 18 105/69 93 04/25/19 11:00 36.5 C 62 18 100/67 95 04/25/19 08:00 71 04/25/19 07:00 36.9 C 77 18 107/68 93 Laboratory Results Laboratory Results - last 24 hr 04/25/19 04/25/19 06:38 06:38 WBC 20.10 H RBC 4.62 Hgb 14.0 Hct 41.5 MCV 89.8 MCH 30.3 MCHC 33.7 RDW Std Deviation 40.9 RDW Coeff of Krys 12.5 Plt Count 366 MPV 12.0 H Sodium 140 Potassium 4.5 D Chloride 108 H Carbon Dioxide 26 Anion Gap 6.0 BUN 7 Creatinine 0.42 L Est Cr Clr Drug Dosing 187.3 Est GFR ( Amer) 140.5 Est GFR (Non-Af Amer) 121.2 BUN/Creatinine Ratio 16.3 Glucose 123 H Calcium 8.9 PG Care Time/CCT Total # of Minutes Spent Total Time Spent with Patient: Total time spent is greater than 50% in coordination of care (as documented) at patient's floor/unit and/or counseling patient: (1) PNA (pneumonia) Laterality: bilateral Lung location: lower lobe of lung Pneumonia type: due to unspecified organism Qualified Code(s): J18.9 - Pneumonia, unspecified organism
[2019-04-25] MEDS: ENOXAPARIN INJ 40 MG/0.4 ML SYR SQ SCH (20:33)
[2019-04-26] MEDS: guaiFENesin 200 MG TAB PO PRN (00:10)
[2019-04-26 05:52] LABS: Basophils # (auto) 0.03 K/uL (0-0.2); Basophils % (auto) 0.2 %; Eosinophils # (auto) 0.79 K/uL (0-0.5); Eosinophils % (auto) 4.6 %; Hematocrit (blood only) 40.1 % (37-47); Hemoglobin 12.9 g/dL (12.0-16.0); Immature Granulocytes # (auto) 0.24 K/uL (0.00-0.02); Immature Granulocytes % (auto) 1.4 %; Lymphocytes # (auto) 3.42 K/uL (1.2-3.4); Mean Corpuscular Hemoglobin 29.2 pg (25-34); Mean Corpuscular Hgb Conc 32.2 g/dL (32-36); Mean Corpuscular Volume 90.7 fL (80-100); Mean Platelet Volume 11.8 fL (7.4-10.4); Monocytes # (auto) 1.36 K/uL (0.11-0.59); Neutrophils # (auto) 11.25 K/uL (1.4-6.5); Neutrophils % (auto) 65.8 %; Platelet Count 392 K/uL (130-400); RDW Coefficient of Variation 12.5 % (11.5-14.5); RDW Standard Deviation 41.8 fL (36.4-46.3); Red Blood Count 4.42 M/uL (4.2-5.4); White Blood Count 17.09 K/uL (4.8-10.8)
[2019-04-26 06:13] LABS: BUN Creatinine Ratio 13.7 (10-20); Calcium 8.9 mg/dl (8.5-10.1); Est GFR (African American) 129.3; Est GFR (Non-African American) 111.6; Potassium 3.9 mmol/L (3.5-5.1)
[2019-04-26 06:18] LABS: Phosphorus 3.5 mg/dl (2.5-4.9)
[2019-04-26] MEDS: LACTOBACILLUS ACIDOPHILUS (FLORANEX) TAB PO SCH (08:38)
[2019-04-26] MEDS: FAMOTIDINE 20 MG TAB PO SCH (08:39)
[2019-04-26] MEDS: CITALOPRAM 20 MG TAB PO SCH (08:39)
[2019-04-26] MEDS: cefTRIAXone SODIUM 1,000 MG/50 ML BAG IV SCH (08:39)
[2019-04-26] MEDS: NALTREXONE HCL 50 MG TAB PO SCH (08:40)
[2019-04-26] MEDS: IPRATROPIUM BROMIDE/ALBUTEROL respimat INH INH SCH (08:41)
[2019-04-26] MEDS: MULTIVITAMIN TAB PO SCH (08:41)
[2019-04-26] MEDS ORDERED: THIAMINE HCL 100 MG TAB PO SCH (09:00)
[2019-04-26] MEDS ORDERED: predniSONE 20 MG TAB PO SCH (09:00)
[2019-04-26] MEDS ORDERED: AZITHROMYCIN 250 MG TAB PO SCH (09:00)
--- NOTE | 2019-04-26 16:22 | Discharge Summary ---
Date of Service April 26, 2019 Admission HPI Per Admitting Provider 49 y/o F c/o fever and SOB. Pt states she woke in the middle of the night on morning with SOB. She later developed fevers. This has gotten worse into today. She is currently undergoing alcohol rehab at [facility] and was seen in their medical office yesterday. She was started on augmentin last night and had another dose this AM. She was also given a dose of steroids this AM. Despite this, pt has continued to feel worse. She was noted to have O2 sats in the mid-80s on RA. She does not use O2 at baseline. She has been nauseated without emesis. She has not had much PO due to no appetite. She has never been sick like this before. Pt states she was doing quite well with her rehab. Her last alcohol was 04/01. She entered rehab on 04/02. Her only medication upon admission to [facility] was celexa. The other medications are prescribed by [facility] as part of their program. She states she has not needed any PRNs for the last few days. Pt denies chest pain, abd pain, c/d, LE pain or swelling. Principal Diagnosis Community-acquired pneumonia Discharge Exam Constitutional WD/WN, vitals as above well developed and well nourished; no acute distress and no altered mental status Eyes normal visual shelby by confrontation and + anicteric sclerae ENMT external ear and nose normal, oropharynx normal Neck normal visual inspection and trachea midline Respiratory normal respiratory effort, lungs clear to auscultation normal respiratory effort; no respiratory distress Cardiovascular Rate/Rhythm: regular rate, regular rhythm and + tachycardic Heart Sounds: normal S1 and normal S2; no murmur Vessels: posterior tibial pulses present and dorsalis pedis pulses present; no JVD Extremities: no edema Gastrointestinal (Abdomen) normal bowel sounds, soft, nontender, no hepatosplenomegaly Inspection/Auscultation: abdomen not distended Percussion/Palpation: abdomen soft; abdomen nontender Musculoskeletal Head/Neck/Chest: normocephalic and head atraumatic Skin no rashes, warm and dry Neurologic awake; not confused Speech / Cognition: normal speech Motor/Sensory: no tremor Psychiatric A+Ox3, euthymic affect Discharge Data Allergies Allergy/AdvReac Type Severity Reaction Status Date / Time Sulfa (Sulfonamide Allergy Intermediate Rash Verified 04/23/19 16:02 Antibiotics) Consultations 04/23/19 17:09 ED Decision to Admit Stat 04/23/19 18:50 Consult Case Management - Discharge Planning Routine Ordered Studies 04/23/19 16:25 CT angio chest PE protocol Stat Hospital Course (1) PNA (pneumonia): Cefdinir and azithromycin to finish out 5-day course of abx. Gave prednisone 20mg x 2 more days as well. - PCP follow up. (2) Anxiety: cont outpatient meds (3) Depression: cont outpatient meds (4) Alcohol abuse: just finished a 2-3 week stay at [facility] drug/alcohol rehab does not need to return there post-d/c from [facility] cont thiamine 200mg once daily no evidence of any etoh withdrawal (last drink was [place]) remains on naloxone 50mg daily (5) Tobacco use: declines nicoderm patch (6) DVT prophylaxis: lovenox once daily updated at bedside 04/24/19 anticipate d/c home on 04/26/19 she is from [facility] and plans to return there with her Total Time Total Time Spent Total Time Spent (In Minutes): 35 Discharge Plan Discharge Items Patient Disposition: Home - Self-Care Reason For Visit: PNA Discharge Diagnosis: Pneumonia Activity: Resume your previous activity Non-emergency contact: Primary Care Provider Call non-emergency contact if: your symptoms worsen and your temperature is above 101 Follow-up/Referrals: Prashanth Quiroz MD [Primary Care Provider] - Diet: Regular Addtl Attending Provider Instructions: Ms. Dears, You were admitted with pneumonia. We treated you with IV antibiotics, and you have been improving while in the hospital. We feel you are ready to be discharged today. You got your antibiotics today before you left, so you are good for the rest of today. Please nut picker the antibiotics at your pharmacy and start them tomorrow morning. You will need to take the cefdinir two times per day day starting tomorrow and the azithromycin one time per day. You have 2 days of each antibiotic left. Finally, we gave you two more days of steroids tapered to help reduce lung inflammation. You will finish the steroids on the same day as your antibiotics. Please go to your PCP this week. If you have more trouble breathing, more shortness of breath, more fevers, or other concerning symptoms, please return to a hospital near your home or call if it's an emergency. Pending Studies at Discharge: Yes (Blood cultures) Stand-Alone Forms: My [facility], Smoking Cessation Medications and DC Order Prescriptions: New azithromycin 250 mg tablet 250 mg PO DAILY Qty: 2 RF: 0 prednisone 20 mg Tablet 20 mg PO QAM Qty: 2 RF: 0 cefdinir 300 mg capsule 300 mg PO BID Qty: 4 RF: 0 Combivent Respimat 20-100 mcg/actuation Mist 1 puff inhalation QID PRN (Reason: shortness of breath or wheezing) Qty: 4 RF: 0 Continued multivitamin Tablet 1 tab PO QAM RF: 0 doxepin 50 mg Capsule 50 mg PO HS RF: 0 clonidine HCl 0.1 mg Tablet 0.1 mg PO TID PRN (Reason: RLS) RF: 0 acetaminophen 325 mg Tablet 650 mg PO QID PRN (Reason: Fever Or Pain) RF: 0 naloxone 0.4 mg/mL Solution 0.4 mg IM DIRECTED PRN (Reason: Sedation) RF: 0 ondansetron HCl [Zofran] 8 mg Tablet 8 mg PO TID PRN (Reason: Nausea) RF: 0 naltrexone 50 mg Tablet 50 mg PO DAILY RF: 0 hydroxyzine pamoate [Vistaril] 50 mg Capsule 50 mg PO TID PRN (Reason: Anxiety) RF: 0 citalopram [Celexa] 20 mg Tablet 20 mg PO QAM RF: 0 diphenhydramine HCl [Benadryl] 25 mg Capsule 25 - 50 mg PO Q6H PRN (Reason: Allergy Symptoms) RF: 0 cyanocobalamin (vitamin B-12) 1,000 mcg/mL Solution 1,000 mcg IM DIRECTED RF: 0 ranitidine HCl [Zantac] 150 mg Tablet 150 mg PO BID PRN (Reason: Indigestion) RF: 0 promethazine 25 mg Tablet 25 mg PO QID PRN (Reason: Nausea) RF: 0 calcium carbonate [Tums] 200 mg calcium (500 mg) Tablet,Chewable See Rx Instructions .ROUTE .COMPLEX MDD 15 TABLETS/24 HOURS PRN (Reason: Heartburn) RF: 0 ibuprofen 600 mg Tablet 600 mg PO QID PRN (Reason: Fever Or Pain) RF: 0 polyethylene glycol 3350 [Miralax] 17 gram/dose Powder 17 g PO Q4H PRN (Reason: Constipation) RF: 0 loratadine [Claritin] 10 mg Tablet 10 mg PO DAILY PRN (Reason: Allergy Symptoms) RF: 0 amoxicillin-pot clavulanate [Augmentin] 875-125 mg Tablet 1 tab PO BID RF: 0 Vivitrol 380 mg Suspension,Extended Rel Recon 380 mg IM DIRECTED RF: 0 apple cider vinegar 300 mg Tablet 0 mg PO QAM RF: 0 melatonin 5 mg Tablet 5 mg PO HS PRN (Reason: Sleep) RF: 0 Biofreeze (menthol) 4 % Gel 1 applic TOPICAL DIRECTED PRN (Reason: Pain) RF: 0 Mucinex 400 Mg 400 MG tablet 400 mg PO Q6H PRN (Reason: Congestion) RF: 0 dicyclomine 20 mg Tablet 20 mg PO TID PRN (Reason: Abdominal Pain) RF: 0 docusate sodium [Colace] 100 mg Capsule 100 mg PO DAILY PRN (Reason: Constipation) RF: 0 bisacodyl 5 mg Tablet 15 mg PO DAILY PRN (Reason: Constipation) RF: 0 Discontinued prednisone 10 mg Tablet See Rx Instructions .ROUTE .COMPLEX RF: 0 Discharge Orders: Discharge Order (Routine); Ordered 04/26/19 Ordered By: Kashmir Marti Admission Data Admit Date/Time: 04/23/19 17:51 Attending Provider: Kashmir Marti Admit Provider: Helen Baugh Primary Care Provider: Prashanth Quiroz Other Providers: Helen Baugh Other Interventions: Discharge Summary Assessment (RN) Last Done: 04/26/19 10:54 DC Date/Time DO NOT enter until pt leaves facility: 04/26/19 11:12
== END 2019-04-26 11:12 | disposition home or self-care (01) | DRG 193 ==
LOC: ED 15:10 → SUATTDRO 17:51 → 2N 17:51